=== PATIENT | male | born 1990 | race African-American/Black ===

== ENCOUNTER 2019-12-27 05:39 | Emergency (ER) | payer SELFPAY ==
[~2019-12-27] VITALS: Ht 177.8 cm; Wt 73.0 kg
[2019-12-27 05:42] VITALS: BP 140/78
[2019-12-27 09:18] LABS: *AMPHETAMINES SCREEN URINE NEGATIVE (NEGATIVE); *BARBITURATES SCREEN URINE NEGATIVE (NEGATIVE); *COCAINE SCREEN URINE NEGATIVE (NEGATIVE); CANNABINOID URINE SCREEN PRESUMTIVE POSITIVE (NEGATIVE); METHADONE URINE SCREEN NEGATIVE (NEGATIVE); PHENCYCLIDINE URINE SCREEN NEGATIVE (NEGATIVE)
[2019-12-27 09:19] LABS: OPIATES URINE SCREEN NEGATIVE (NEGATIVE)
[2019-12-27 09:20] LABS: *BENZODIAZEPINES SCREEN URINE NEGATIVE (NEGATIVE)
== END 2019-12-27 12:42 | disposition home or self-care (01) ==
LOC: ER 05:39
DX: F32.9 Major depressive disorder, single episode, unspecified (principal); Z59.0 Homelessness; F12.10 Cannabis abuse, uncomplicated
CPT/HCPCS: 80305; 99283

== ENCOUNTER 2019-12-27 12:33 | Emergency (ER) | payer MEDICAID ==
[~2019-12-27] VITALS: Ht 182.9 cm; Wt 69.0 kg
[2019-12-27 18:00] VITALS: BP 120/89
== END 2019-12-28 12:58 | disposition home or self-care (01) ==
LOC: ER 12:33
DX: I10 Essential (primary) hypertension (principal); Z59.0 Homelessness
CPT/HCPCS: 99283